=== PATIENT | female | born 1940 | race Caucasian/White ===

== ENCOUNTER 2019-05-24 12:24 | Emergency (ER) | payer OTHER ==
[2019-05-24 12:41] VITALS: BMI 30.8
--- NOTE | 2019-05-24 13:28 | PDOC ---
History of Present Illness - General Chief Complaint: Back Pain Stated Complaint: RT LEG PAIN Time Seen by Provider: 05/24/19 13:03 - History of Present Illness Initial Comments: 05/24/19 13:22 79 y/o F w/multiple CM including CVA and AL presents for evaluation of LBP with B leg radiculopathy x4 days without systemic symptoms or loss of B/B function Past History - Past Medical History Allergies/Adverse Reactions: Allergies Allergy/AdvReac Type Severity Reaction Status Date / Time No Known Allergies Allergy Verified 05/24/19 12:41 CVA: Yes COPD: No HTN: Yes - Suicide/Smoking/Psychosocial Hx Smoking History: Never smoked Have you smoked in the past 12 months: No Information on smoking cessation initiated: No Hx Alcohol Use: No Drug/Substance Use Hx: No Review of Systems - Review of Systems Constitutional: No: Fever Musculoskeletal: Yes: Back Pain *Physical Exam - Vital Signs Last Vital Signs Temp Pulse Resp BP Pulse Ox 98.2 F 59 L 17 117/60 100 05/24/19 12:39 05/24/19 12:39 05/24/19 12:39 05/24/19 12:39 05/24/19 12:39 - Physical Exam Comments: 05/24/19 13:27 Lumbar spine skin color and temperature are normal. There is decreased range of motion. 5 out of 5 strength in bilateral lower extremities.Straight leg raise test is negative bilaterally. Thighs and calves are soft and nontender. There are no gross sensory motor deficits. Neurovascularly intact. tenderness about the paralumbar musculature. Difficulty with ambulation requires assistance. ED Treatment Course - RADIOLOGY Radiology Studies Ordered: Category Date Time Status SPINE-LUMBAR SACRAL [RAD] Stat Radiology 05/24/19 13:12 Ordered Medical Decision Making - Medical Decision Making 05/24/19 13:28 79 y/o F with systemic vascular disease. Requires assistance with ambulation at this point. X-ray of the LS ordered. Concern for compression fx. Considering transfer to the main ER for admission of intractable back pain at this point. 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
[2019-05-24 15:03] LABS: BASO % 0.9 % (0-2.0); EOS % 4.2 % (0-4.5); HEMATOCRIT 40.1 % (32.4-45.2); HEMOGLOBIN 13.6 GM/dL (10.7-15.3); LYMPH % 27.9 % (8-40); MEAN CELL VOLUME 91.4 fl (80-96); MEAN PLT VOLUME 9.2 fl (7.5-11.1); MONO % 10.9 % (3.8-10.2); NEUT % 56.1 % (42.8-82.8); PLATELET COUNT 261 K/MM3 (134-434); RBC 4.38 M/mm3 (3.60-5.2); RDW 13.6 % (11.6-15.6); WHITE BLOOD COUNT 6.4 K/mm3 (4.0-10.0)
--- NOTE | 2019-05-24 15:06 | PDOC ---
*Physical Exam - Vital Signs Last Vital Signs Temp Pulse Resp BP Pulse Ox 98.2 F 59 L 17 117/60 100 05/24/19 12:39 05/24/19 12:39 05/24/19 12:39 05/24/19 12:39 05/24/19 12:39 - Physical Exam General Appearance: Yes: Nourished, Appropriately Dressed, Other (sitting in wheel chair). No: Apparent Distress Musculoskeletal: positive: Muscle Spasm (Right paraspinous muscles L3-L5) Integumentary: positive: Normal Color, Dry Neurologic: positive: Fully Oriented, Alert, Normal Mood/Affect, Normal Response , Motor Strength 01/10 ED Treatment Course - LABORATORY CBC & Chemistry Diagram: 05/24/19 14:40 05/24/19 14:40 Medical Decision Making - Medical Decision Making 05/24/19 15:05 Sign out received from DENICE Baker Pt with lower back pain with intractable pain No obvious pathology on x-ray Labs, EKG, CXR pending Consider admission for pain control if cannot walk 05/24/19 19:09 Pt reports feeling much better after ofirmev, flexeril and lidocaine patch Sign out to SIERRA Portillo. Pt pending walk trial for DC *DC/Admit/Observation/Transfer Diagnosis at time of Disposition: Lower back pain Qualifiers: Chronicity: acute Back pain laterality: unspecified Sciatica presence: without sciatica Qualified Code(s): M54.5 - Low back pain - Discharge Dispostion Disposition: HOME - Prescriptions Prescriptions: Ibuprofen 400 mg PO QID PRN #20 tablet PRN Reason: Back Pain Lidocaine [Lidocaine Pain Relief] 1 each TP DAILY #7 adh..patch - Referrals Referrals: Hudson Richardson MD [Staff Physician] - London Pringle [Primary Care Provider] - - Patient Instructions Printed Discharge Instructions: Low Back Pain Additional Instructions: follow up with your orthopedic doctor take ibuprofen for pain return to the ER for any worsening symptoms - Post Discharge Activity
[2019-05-24 15:18] LABS: ALBUMIN 3.7 g/dl (3.4-5.0); BILIRUBIN,TOTAL 0.8 mg/dL (0.2-1); CALCIUM 9.5 mg/dL (8.5-10.1); CREATININE 0.9 mg/dL (0.55-1.3); POTASSIUM 4.4 mmol/L (3.5-5.1); TOT PROT 7.4 g/dl (6.4-8.2)
[2019-05-24] MEDS ORDERED: LIDOCAINE 5% TOPICAL PATCH TP ONE (15:50)
[2019-05-24] MEDS ORDERED: CYCLOBENZAPRINE HCL 10 MG TABLET (FP) PO ONE (15:51)
[2019-05-24] MEDS ORDERED: ACETAMINOPHEN 1000 MG/100 ML VIAL (NON FORMULARY) IVPB ONE (15:51)
[2019-05-24 16:58] LABS: URINE APPEARANCE CLEAR; URINE BILIRUBIN NEGATIVE (NEGATIVE); URINE COLOR DK YELLOW; URINE GLUCOSE (UA) NEGATIVE (NEGATIVE); URINE KETONE TRACE (NEGATIVE); URINE LEUK ESTERASE NEGATIVE (NEGATIVE); URINE NITRITE NEGATIVE (NEGATIVE); URINE PROTEIN NEGATIVE (NEGATIVE); URINE UROBILINOGEN 0.2 mg/dL (0.2-1.0)
[2019-05-24] MEDS ORDERED: CYCLOBENZAPRINE HCL 10 MG TABLET (FP) ONE (17:01)
[2019-05-24] MEDS ORDERED: ACETAMINOPHEN INJECTION 100 ML IVPB ONE (17:02)
[2019-05-24] MEDS ORDERED: LIDOCAINE 5% TOPICAL PATCH ONE ×2 (17:02)
--- NOTE | 2019-05-24 19:49 | PDOC ---
*Physical Exam - Vital Signs Last Vital Signs Temp Pulse Resp BP Pulse Ox 98.2 F 59 L 17 117/60 99 05/24/19 12:39 05/24/19 12:39 05/24/19 12:39 05/24/19 12:39 05/24/19 15:25 - Physical Exam General Appearance: Yes: Appropriately Dressed Respiratory/Chest: positive: Lungs Clear, Normal Breath Sounds ED Treatment Course - LABORATORY CBC & Chemistry Diagram: 05/24/19 14:40 05/24/19 14:40 - ADDITIONAL ORDERS Additional order review: Laboratory Results 05/24/19 05/24/19 16:29 14:40 Sodium 138 Potassium 4.4 Chloride 103 Carbon Dioxide 27 Anion Gap 8 BUN 22.0 H Creatinine 0.9 Est GFR (CKD-EPI)AfAm 69.99 Est GFR (CKD-EPI)NonAf 60.39 Random Glucose 87 Calcium 9.5 Total Bilirubin 0.8 AST 17 ALT 19 Alkaline Phosphatase 63 Total Protein 7.4 Albumin 3.7 Urine Color Dk yellow Urine Appearance Clear Urine pH 5.0 Ur Specific [place] 1.026 Urine Protein Negative Urine Glucose (UA) Negative Urine Ketones Trace H Urine Blood Negative Urine Nitrite Negative Urine Bilirubin Negative Urine Urobilinogen 0.2 Ur Leukocyte Esterase Negative 05/24/19 14:40 RBC 4.38 MCV 91.4 MCHC 34.0 RDW 13.6 MPV 9.2 Neutrophils % 56.1 Lymphocytes % 27.9 Monocytes % 10.9 H Eosinophils % 4.2 Basophils % 0.9 - Medications Given in the ED: ED Medications Discontinued Medications Generic Name Dose Route Start Last Admin Trade Name Danae PRN Reason Stop Dose Admin Acetaminophen 1,000 mg 05/24/19 15:51 05/24/19 17:05 Ofirmev Injection - IVPB 05/24/19 15:52 1,000 mg ONCE ONE Administration Cyclobenzaprine HCl 5 mg 05/24/19 15:51 05/24/19 17:05 Flexeril - PO 05/24/19 15:52 5 mg ONCE ONE Administration Lidocaine 1 patch 05/24/19 15:50 05/24/19 17:05 Lidoderm Patch - TP 05/24/19 15:51 1 patch ONCE ONE Administration Medical Decision Making - Medical Decision Making 05/24/19 20:08 patient is able to ambulate independently. reports feeling better. will d/ c home. ortho referral given. *DC/Admit/Observation/Transfer Diagnosis at time of Disposition: Lower back pain Qualifiers: Chronicity: acute Back pain laterality: unspecified Sciatica presence: without sciatica Qualified Code(s): M54.5 - Low back pain - Discharge Dispostion Disposition: HOME - Prescriptions Prescriptions: Ibuprofen 400 mg PO QID PRN #20 tablet PRN Reason: Back Pain Lidocaine [Lidocaine Pain Relief] 1 each TP DAILY #7 adh..patch - Referrals Referrals: London Pringle [Primary Care Provider] - uHdson Richardson MD [Staff Physician] - - Patient Instructions Printed Discharge Instructions: Low Back Pain Additional Instructions: follow up with your orthopedic doctor take ibuprofen for pain return to the ER for any worsening symptoms - Post Discharge Activity
[2019-05-24 19:54] VITALS: BP 115/52; PULSE 48; TEMP 97.1
--- NOTE | 2019-05-25 13:04 | EKG ---
Test Reason : Blood Pressure : / mmHG Vent. Rate : 048 BPM Atrial Rate : 048 BPM P-R Int : 150 ms QRS Dur : 078 ms QT Int : 440 ms P-R-T Axes : 005 -32 002 degrees QTc Int : 393 ms SINUS BRADYCARDIA LEFT AXIS DEVIATION NONSPECIFIC ST ABNORMALITY INFERIOR INFARCT (CITED ON OR BEFORE 24-MAY-2019) ABNORMAL ECG WHEN COMPARED WITH ECG OF 15-JAN-2010 14:03, NO SIGNIFICANT CHANGE WAS FOUND Confirmed by MD Grady, Richie ([id number]) on 05/25/2019 1:04:41 PM Referred By: Confirmed By:Richie Rasmussen MD
== END 2019-05-24 20:33 | disposition home or self-care (01) ==
LOC: JERFT 12:24 → JER 12:24
PROC: 3E033NZ Introduction of Analgesics, Hypnotics, Sedatives into Peripheral Vein, Percutaneous Approach (ICD-10-PCS; principal; 2019-05-24)
DX: M51.37 Other intervertebral disc degeneration, lumbosacral region (principal); M54.5 Low back pain; I25.10 Atherosclerotic heart disease of native coronary artery without angina pectoris; I10 Essential (primary) hypertension; I25.2 Old myocardial infarction; Z86.73 Personal history of transient ischemic attack (TIA), and cerebral infarction without residual deficits
CPT/HCPCS: 36415; 71046-TC-FY; 72100-TC-FY; 80053; 81003; 85025; 87086; 87186; 93005; 93010; 96374; 99284-25; J0131